=== PATIENT | female | born 1960 | race Caucasian/White ===

== ENCOUNTER 2019-02-04 06:58 | Day surgery (SDC) | payer OTHER | END 2019-02-04 12:20 | disposition home or self-care (01) | LOC: AMB-ENDOS 06:58 | DX: D12.0 Benign neoplasm of cecum (principal) ==

== ENCOUNTER 2019-05-23 09:18 | Outpatient (CLI) | payer OTHER | END 2019-05-23 09:23 | disposition home or self-care (01) | LOC: TOM 09:18 | DX: R06.02 Shortness of breath (principal); F17.298 Nicotine dependence, other tobacco product, with other nicotine-induced disorders ==

== ENCOUNTER 2020-05-28 07:38 | Outpatient (CLI) | payer OTHER | END 2020-05-28 07:50 | disposition home or self-care (01) | LOC: TOM 07:38 | PROVIDERS: ATTEND Internal Medicine Pulmonary Disease | DX: R91.1 Solitary pulmonary nodule (principal); F17.200 Nicotine dependence, unspecified, uncomplicated ==

== ENCOUNTER 2021-08-04 13:36 | Outpatient (CLI) | payer OTHER | END 2021-08-04 13:48 | disposition home or self-care (01) | LOC: TOM 13:36 | PROVIDERS: ATTEND Internal Medicine Pulmonary Disease | DX: R91.1 Solitary pulmonary nodule (principal) ==

== ENCOUNTER 2022-05-11 09:29 | Outpatient (CLI) | payer OTHER | END 2022-05-11 09:33 | disposition home or self-care (01) | LOC: SONOGRAMA 09:29 | PROVIDERS: ATTEND Pathology Anatomic Pathology & Clinical Pathology | DX: E04.1 Nontoxic single thyroid nodule (principal) ==

== ENCOUNTER 2023-01-02 16:40 | Emergency (ER) | payer OTHER ==
[~2023-01-02] VITALS: Ht 162.6 cm; Wt 79.4 kg
[2023-01-02] MEDS ORDERED: BACLOFEN20 MG PO (17:19)
[2023-01-02] MEDS ORDERED: CLONAZEPAM1 MG (17:19)
[2023-01-02] MEDS ORDERED: EFFEXOR XR75 MG PO (17:19)
[2023-01-02] MEDS ORDERED: DICLOFENAC SODI75 MG PO (17:20)
[2023-01-02] MEDS ORDERED: AMBIEN CR12.5 MG PO (17:20)
[2023-01-02] MEDS ORDERED: SEROQUEL50 MG PO (17:21)
== END 2023-01-03 01:26 | disposition home or self-care (01) ==
LOC: ER 16:40
DX: J32.8 Other chronic sinusitis (principal); R42 Dizziness and giddiness